=== PATIENT | male | born 1985 | race Two or more races ===

== ENCOUNTER 2017-07-22 02:13 | Emergency (ER) | payer SELFPAY ==
--- NOTE | 2017-07-22 03:28 | ED PDOC ---
HPI: Psych/Substance Abuse Time Seen by Provider: 07/22/17 02:30 Chief Complaint (Nursing): Alcohol Ingestion Chief Complaint (Provider): Alcohol Intoxication History Per: Patient, EMS History/Exam Limitations: intoxication Onset/Duration Of Symptoms: Mins (prior to arrival) Current Symptoms Are (Timing): Still Present Modifying Factor(s): Alcohol Additional Complaint(s): Jules Feliz is a 32 year old male with unknown past medical history , who was brought to the ER by [facility] s/p being found sitting on the floor of a diner intoxicated prior to arrival. Patient admits to drinking whiskey but will not quantify how much. He is uncooperative in the ER and will not provide any more history or review of systems. Patient has no complaints at this time. PMD: none provided Past Medical History Reviewed: Historical Data, Nursing Documentation, Vital Signs Vital Signs: Last Vital Signs Temp 97.8 F 07/22/17 02:24 Pulse 120 H 07/22/17 02:24 Resp 20 07/22/17 02:24 BP 152/82 H 07/22/17 02:24 Pulse Ox 97 07/22/17 02:24 - Medical History PMH: No Chronic Diseases - Family History Family History: States: Unknown Family Hx - Allergies Allergies/Adverse Reactions: Allergies Allergy/AdvReac Type Severity Reaction Status Date / Time No Known Allergies Allergy Verified 07/22/17 02:27 Review of Systems ROS Statement: Except As Marked, All Systems Reviewed And Found Negative Review Of Systems: ROS cannot be obtained secondary to pt's inabilty to answer questions. (alcohol intoxication) Physical Exam - Reviewed Nursing Documentation Reviewed: Yes Vital Signs Reviewed: Yes - Physical Exam Comments: GENERAL APPEARANCE: Patient is awake, not oriented, in no acute distress, not cooperative, (+) odor of alcohol. Responsive to painful stimuli. SKIN: Warm, dry; (-) cyanosis HEAD: (-) scalp swelling, (-) scalp tenderness. EYES: (-) conjunctival pallor, (-) scleral icterus, (-) nystagmus, (+) bilateral conjunctival injection. ENMT: Mucous membranes moist. Airway patent: (-) stridor. NECK: Supple(-) tenderness, (-) stiffness, (-) lymphadenopathy CHEST AND RESPIRATORY: (-) rales, (-) rhonchi, (-) wheezes; breath sounds equal. Respirations even and nonlabored. ABDOMEN: Soft, (-) distention, (-) tenderness, (-) guarding. NEURO AND PSYCH: Mental status as above. Affect: lacquer coater: Intact. Pupils equal and reactive; EOMI; (-) facial asymmetry; tongue and uvula midline. Speech slurred. - ECG O2 Sat by Pulse Oximetry: 97 (RA) Pulse Ox Interpretation: Normal Medical Decision Making Medical Decision Making: Time: 3:00 Impression: alcohol intoxication Plan: --Alcohol Serum --Glucose, POC Patient is pending clinical sobriety. 0500 Patient sleeping in ED stretcher comfortably. No acute distress noted. -Alcohol: 353 -Accucheck: 111 0620 On re-evaluation, patient reports improvement of symptoms. On exam, patient is now AAOx3, in no acute distress. Lungs clear to auscultation, cardiac RRR, abdomen soft, non-tender, repeat neuro exam shows no focal findings. Ambulatory in ED with steady, unassisted gait. VSS, repeat HR: 97, repeat BP:133 /72. Lab results reviewed, Diagnostic results d/w the patient in great detail. Diagnosis of alcohol intoxication d/w the patient. Based on history, exam and diagnostic results, plan will be for outpatient follow up. Patient instructed to follow-up with pmd / referral provided / the clinic in 1- 2 days without fail. Return to the emergency room at any time for any new or worsening symptoms. Patient states he fully agrees with and understands discharge instructions. States that he agrees with the plan and disposition. Verbalized and repeated discharge instructions and plan. I have given the patient opportunity to ask any additional questions. Scribe Attestation: Documented by Mary Carmen Fitzpatrick acting as a scribe for Amanda Ramachandran MD Scribe Attestation: All medical record entries made by the Scribe were at my direction and personally dictated by me. I have reviewed the chart and agree that the record accurately reflects my personal performance of the history, physical exam, medical decision making, and the department course for this patient. I have also personally directed, reviewed, and agree with the discharge instructions and disposition. Disposition - Clinical Impression Clinical Impression: Alcohol ingestion, Alcohol intoxication - Patient ED Disposition Is Patient to be Admitted: No Counseled Patient/Family Regarding: Studies Performed, Diagnosis, Need For Followup - Disposition Disposition: Routine/Home Disposition Time: 06:26 Condition: FAIR Instructions: Alcohol Use - When Is Drinking a Problem?, Alcohol Abuse and Alcoholism (DC) Forms: Exposed Vocals (Kenyan) Print Language: TANZANIAN - POA Present On Arrival: None
[2017-07-22 06:28] VITALS: BP 133/72; PULSE 97; RESP 16; TEMP 98.3; O2SAT 97
== END 2017-07-22 07:07 | disposition home or self-care (01) ==
LOC: H.ER 02:13
DX: F10.129 Alcohol abuse with intoxication, unspecified (principal)
CPT/HCPCS: 82948; 99284; G0480